=== PATIENT | male | born 1995 | race Caucasian/White ===

== ENCOUNTER 2024-11-07 21:01 | Emergency (ER) | payer MEDICAID, OTHER, SELFPAY ==
[2024-11-07 21:04] VITALS: BP 128/78
--- NOTE | 2024-11-07 21:40 | ED.MUSCINJ ---
HPI-Injury
General
Chief Complaint: Musculo-Skeletal Complaint
Source: patient
Exam Limitations: none
Time Seen by Provider: 11/07/24 21:08
History of Present Illness-Injury
Initial Injury comments:
29-year-old male presents with left large toe pain and deformity after kicking a bed he states his large toe was. Currently an inmate at detention. Crooked than usual. 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 No other complaints at this time
Phy Exam
Physical Exam
Physical Exam:
General: Well-appearing male no acute distress
Vascular: 2+ dorsalis pedis pulse left foot with brisk capillary refill to the large toe
Musculoskeletal exam: Hallux valgus deformity of the left large toe, slowed he is tender over the metatarsal phalangeal joint. There is overlapping of the large toe onto the second toe skin is intact without laceration
Injury Course
Orders/Labs/Results
Orders:
Orders
11/07/24 21:07
CR Foot - Left Min 3 Views Urgent
Comment:
Reason For Exam: injury
MDM/Problems Addressed
Differential Diagnosis Includes:
. Left large toe pain with deformity. Question chronic hallux valgus deformity
Versus acute on chronic injury versus fracture or dislocation
Patient was given a digital block for pain relief and sent for x-rays. X-ray showed no acute finding. Reexamination of the patient. Was able to align the toe so that is not overlapping the second explained him this is more of a chronic issue he
may have exacerbated. Recommend ibuprofen or Tylenol podiatry follow-up. Stable for
*Critical Care Note
Total Time (30-74mins, 75-104mins- exclusive of procedures): Not Applicable
ED Attending Note
-
Portions of this chart may have been created with voice recognition software.� Occasional wrong word or��sound alike� substitutions may have occurred due to the inherent limitations of voice recognition software.
Discharge Plan
Departure
Patient Disposition: Home (Routine Discharge)
Date of Disposition: 11/07/24
Time of Disposition: 21:43
Patient with high blood pressure during this ER visit?: No
Discharge Problem:
Sprain of toe
Instructions: Muscle and Bone Pain (DC)
Prescriptions:
No Action
acetaminophen 325 mg Tablet
650 mg PO BID PRN (Reason: mild pain)
mirtazapine 15 mg Tablet
15 mg PO HS
sulfamethoxazole-trimethoprim [Bactrim DS] 800-160 mg Tablet
1 tab PO BID Qty: 14 0RF
Triple Antibiotic 3.5-400-5,000 il-lxez-metv Ointment In Packet
1 applic TOPICAL BID Qty: 4 0RF
Referrals:
NONE,* [Family Provider] -
Activity Restrictions/Additional Instructions:
You should follow-up with foot and ankle specialist or insulation cupola operator for further evaluation if you want your bunion fixed. Otherwise you may use ibuprofen or Tylenol for pain.
Interventions
Interventions:
*General Assessment Last Done: 11/07/24 21:04
ED- Fall Risk Assessment Last Done: 11/07/24 21:07
ED-Musculoskeletal Assessment Last Done: 11/07/24 21:07
Discharge Date and Time
Print Language: ANGOLAN
== END 2024-11-07 22:00 | disposition home or self-care (01) ==
LOC: EMR 21:01
PROVIDERS: EMERGENCY PHYSICIAN Emergency Medicine
DX: S93.509A Unspecified sprain of unspecified toe(s), initial encounter (principal); W22.03XA Walked into furniture, initial encounter
CPT/HCPCS: 99283; 73630